=== PATIENT | female | born 1980 | race Caucasian/White ===

== ENCOUNTER → 2022-11-24 10:08 | Outpatient (CLI) | payer BC, OTHER, SELFPAY ==
[2022-11-26 10:18] LABS: FSH 9.3 mIU/mL (.)
[2022-11-26 12:15] LABS: Estradiol 95.4 pg/mL (.)
[2022-11-28 23:22] LABS: Free Testosterone (Direct) < 0.2 pg/mL (0.0-4.2); Testosterone, Total, LC/MS 31.5 ng/dL (.)
== END ==
PROVIDERS: PCP Family Medicine; Visit Provider Family Medicine
DX: G43.909 Migraine, unspecified, not intractable, without status migrainosus (principal); N95.1 Menopausal and female climacteric states; R68.82 Decreased libido
CPT/HCPCS: 82670; 83001